=== PATIENT | female | born 1970 | race Caucasian/White ===

== ENCOUNTER 2024-09-28 01:57 | Emergency (ER) | payer MEDICAID ==
[~2024-09-28] VITALS: Ht 162.6 cm; Wt 95.0 kg
[2024-09-28 02:13] VITALS: O2SAT 96
[2024-09-28] MEDS: ACETAMINOPHEN 325MG TABLET PO ONE (03:15)
[2024-09-28] MEDS ORDERED: BENZ100C86 MT (04:31)
[2024-09-28] MEDS ORDERED: DOXY100C5 MT (04:31)
[2024-09-28 04:40] VITALS: BP 112/52; PULSE 96; RESP 18; TEMP 37.4; O2SAT 97
== END 2024-09-28 04:53 | disposition home or self-care (01) ==
LOC: ER 02:17
DX: J06.9 Acute upper respiratory infection, unspecified (principal); E11.9 Type 2 diabetes mellitus without complications
CPT/HCPCS: 71045; 99283

== ENCOUNTER 2024-11-09 11:18 | Inpatient (IN) | payer MEDICAID, OTHER ==
[~2024-11-09] VITALS: Ht 162.6 cm; Wt 64.9 kg
[~2024-11-09 11:18] MED LIST: AMOX1TAB16 PO; APIX5TAB; ATOR10TA69; AZIT250T12 PO; BENZ100C86 MT; ENAL-79; GABA-1180; TRAZ-251
[2024-11-09 12:51] LABS: BASOPHILS % 0.6 % (0.0-2.0); DIFFERENTIAL COMMENT 0; EOSINOPHILS % 0.2 % (0.0-5.0); HEMATOCRIT. 30.1 % (36.0-48.0); HEMOGLOBIN. 9.8 g/dL (12.0-16.0); LYMPHOCYTES % 11.5 % (20.0-50.0); MEAN CORPUSCULAR HGB CONC 32.7 g/dL (31.0-37.0); MEAN CORPUSCULAR VOLUME 79.6 fL (81.0-99.0); MEAN PLATELET VOLUME 7.3 fl (7.4-10.4); MONOCYTES % 7.2 % (2.0-8.0); NEUTROPHILS % 80.5 % (40.0-76.0); PLATELET 204 x1000/uL (130-400); RED BLOOD CELL COUNT 3.78 mill/uL (4.2-5.4); RED CELL DISTRIBUTION WIDTH 16.9 % (11.6-14.6); WHITE BLOOD COUNT 7.9 x1000/uL (4.5-11.0)
[2024-11-09 12:57] LABS: CHLORIDE 104 mEq/L (98-107); POTASSIUM 4.1 mEq/L (3.5-5.1); SODIUM 139 mEq/L (136-145)
[2024-11-09 12:58] LABS: CALCIUM 7.5 mg/dL (8.7-10.4); CARBON DIOXIDE 31 mEq/L (21-32)
[2024-11-09 13:03] LABS: CREATININE 0.7 mg/dL (0.6-1.0); GLUCOSE 135 mg/dL (70-105); UREA NITROGEN BLOOD 11 mg/dL (9-23)
[2024-11-09 13:05] LABS: TROPONIN I HIGH SENSITIVITY 9 ng/L (3.0-34)
[2024-11-09] MEDS: PIPERACILLIN/TAZO 3.375G/50ML 50 ML IV ONE (13:45)
[2024-11-09] MEDS: SODIUM CHLORIDE 0.9% (SEPSIS BOLUS) IV ONE (13:45)
[2024-11-09] MEDS: ONDANSETRON HCL 4MG/2ML INJ IV STA (13:45)
[2024-11-09] MEDS: VANCOMYCIN 1G PREMIX 200 ML IV ONE (14:05)
[2024-11-09 15:27] LABS: TROPONIN I HIGH SENSITIVITY 8 ng/L (3.0-34)
[2024-11-09 18:08] LABS: INFLUENZA TYPE A Presumptive Negative (Pres. Neg.)
[2024-11-09 18:09] LABS: INFLUENZA TYPE B Presumptive Negative (Pres. Neg.); RESPIRATORY SYNCYTIAL VIRUS Not Detected (Not Detectd)
[2024-11-09] MEDS: ACETAMINOPHEN 650MG/20.3ML UDC PO PRN (18:22)
[2024-11-09 20:00] VITALS: BP 119/63; PULSE 83; RESP 19; TEMP 36.4; O2SAT 96
[2024-11-09] MEDS: ATORVASTATIN CALCIUM 10MG TABLET PO SCH (21:00)
[2024-11-09] MEDS: TRAZODONE HCL 50MG TABLET PO SCH (21:00)
[2024-11-09] MEDS: GABAPENTIN 300MG CAPSULE PO SCH (21:00)
[2024-11-09 22:20] VITALS: BP 105/54; PULSE 84; RESP 18; TEMP 38.8
[2024-11-10] VITALS (7 sets, daily range): BP systolic 98–132; BP diastolic 48–74; PULSE 64–88; RESP 16–19; TEMP 36.2–36.6; O2SAT 96–98
[2024-11-10] MEDS: PIPERACILLIN/TAZO 3.375G/50ML 50 ML IV SCH (02:19)
[2024-11-10] MEDS: ACETAMINOPHEN 325MG TABLET PO PRN (05:36)
[2024-11-10] MEDS: AZITHROMYCIN 500MG/250ML 250 ML IV SCH (05:37)
[2024-11-10] MEDS ORDERED: DEXTROSE 50% WATER 50ML SYRINGE IV PRN (06:30)
[2024-11-10] MEDS: BLOOD SUGAR DIAGNOSTIC STRIP TEST SCH (07:20)
[2024-11-10] MEDS: INSULIN LISPRO 100 UNITS/ML SUBCUT SCH (07:50)
[2024-11-10] MEDS: APIXABAN 5 MG TABLET PO SCH (08:47)
[2024-11-10] MEDS: GUAIFENESIN-DM 200MG-20MG/10ML UDC PO PRN (16:48)
[2024-11-10] MEDS: POLYVINYL ALCOHOL OPHTH DROPS 15ML BOTHEYE SCH (18:23)
[2024-11-10] MEDS: TOBRAMYCIN/DEXAMETH 0.1/0.3% OPHTH SUSP 2.5ML BOTHEYE SCH (21:52)
[2024-11-10] MEDS: IPRATROPIUM/ALBUTEROL 0.5-3(2.5)MG/3ML NEB HHN PRN (22:42)
[2024-11-11] VITALS (7 sets, daily range): BP systolic 116–139; BP diastolic 63–83; PULSE 72–79; RESP 15–18; TEMP 36.2–37.1; O2SAT 95–99
[2024-11-11] MEDS: AZITHROMYCIN 500MG/250ML 250 ML IV SCH (06:19)
[2024-11-11 07:42] LABS: CALCIUM 7.6 mg/dL (8.7-10.4)
[2024-11-11 08:03] LABS: BASOPHILS % 0.3 % (0.0-2.0); EOSINOPHILS % 2.9 % (0.0-5.0); HEMATOCRIT. 25.4 % (36.0-48.0); HEMOGLOBIN. 8.3 g/dL (12.0-16.0); MEAN CORPUSCULAR HEMOGLOBIN 26.1 pg (28.0-32.0); MEAN CORPUSCULAR HGB CONC 32.6 g/dL (31.0-37.0); MEAN CORPUSCULAR VOLUME 80.1 fL (81.0-99.0); MONOCYTES % 6.6 % (2.0-8.0); NEUTROPHILS % 73.2 % (40.0-76.0); PLATELET 185 x1000/uL (130-400); RED BLOOD CELL COUNT 3.17 mill/uL (4.2-5.4); RED CELL DISTRIBUTION WIDTH 16.7 % (11.6-14.6); WHITE BLOOD COUNT 4.9 x1000/uL (4.5-11.0)
[2024-11-11 09:07] LABS: CREATININE 1.5 mg/dL (0.6-1.0)
[2024-11-11] MEDS: IPRATROPIUM/ALBUTEROL 0.5-3(2.5)MG/3ML NEB HHN PRN (21:06)
[2024-11-11] MEDS: SODIUM CHLORIDE 0.9% 1,000 ML IV SCH (23:59)
[2024-11-12] VITALS (7 sets, daily range): BP systolic 117–161; BP diastolic 67–79; PULSE 75–86; RESP 18; TEMP 36.2–36.6; O2SAT 96–98
[2024-11-12 08:05] LABS: BASOPHILS % 0.5 % (0.0-2.0); EOSINOPHILS % 2.8 % (0.0-5.0); HEMATOCRIT. 24.2 % (36.0-48.0); HEMOGLOBIN. 7.7 g/dL (12.0-16.0); LYMPHOCYTES % 21.6 % (20.0-50.0); MEAN CORPUSCULAR HEMOGLOBIN 25.8 pg (28.0-32.0); MEAN CORPUSCULAR HGB CONC 31.9 g/dL (31.0-37.0); MEAN CORPUSCULAR VOLUME 80.9 fL (81.0-99.0); MEAN PLATELET VOLUME 7.8 fl (7.4-10.4); MONOCYTES % 9.3 % (2.0-8.0); NEUTROPHILS % 65.8 % (40.0-76.0); PLATELET 205 x1000/uL (130-400); RED BLOOD CELL COUNT 2.99 mill/uL (4.2-5.4); RED CELL DISTRIBUTION WIDTH 16.5 % (11.6-14.6); WHITE BLOOD COUNT 4.4 x1000/uL (4.5-11.0)
[2024-11-12] MEDS: AZITHROMYCIN 500 MG TABLET PO SCH (08:55)
[2024-11-12 19:01] LABS: BG BASE EXCESS 1.8 mmol/L (-2.0-3.0); BG CARBOXYHEMOGLOBIN 0.2 % (0.5-1.5); BG DEOXYHEMOGLOBIN 4.8 % (0.0-5.0); BG FRACTION INSPIRED OXYGEN 21; BG METHEMOGLOBIN 0.3 % (0.5-1.5); BG OXYGEN SATURATION 95.2 % (94.0-98.0); BG OXYHEMOGLOBIN 94.7 % (94.0-98.0); BG PCO2 39.4 mmHg (32.0-45.0); BG PH 7.438 (7.350-7.450); BG PO2 72.1 mmHg (83.0-108.0); BG SAMPLE SITE LEFT BRACHIAL; BG TOTAL HEMOGLOBIN 11.3 g/dL (12.0-16.0); BG VENT MODE ROOM AIR
[2024-11-12] MEDS: METHYLPREDNISOLONE SOD SUCC 125MG/2ML (ACT-O-VIAL) IV SCH (23:13)
[2024-11-13] VITALS (8 sets, daily range): BP systolic 134–168; BP diastolic 59–89; PULSE 75–95; RESP 17–20; TEMP 36.3–36.8; O2SAT 95–98
[2024-11-13] MEDS: INSULIN LISPRO 100 UNITS/ML SUBCUT ONE (06:43)
[2024-11-13 07:12] LABS: POTASSIUM 4.8 mEq/L (3.5-5.1)
[2024-11-13 07:13] LABS: CALCIUM 8.1 mg/dL (8.7-10.4)
[2024-11-13 07:18] LABS: CREATININE 1.4 mg/dL (0.6-1.0)
[2024-11-13 07:24] LABS: BASOPHILS % 0.3 % (0.0-2.0); EOSINOPHILS % 0.1 % (0.0-5.0); HEMATOCRIT. 26.4 % (36.0-48.0); HEMOGLOBIN. 8.5 g/dL (12.0-16.0); LYMPHOCYTES % 8.8 % (20.0-50.0); MEAN CORPUSCULAR HEMOGLOBIN 26.2 pg (28.0-32.0); MEAN CORPUSCULAR HGB CONC 32.3 g/dL (31.0-37.0); MEAN PLATELET VOLUME 7.9 fl (7.4-10.4); MONOCYTES % 2.5 % (2.0-8.0); NEUTROPHILS % 88.3 % (40.0-76.0); PLATELET 211 x1000/uL (130-400); RED BLOOD CELL COUNT 3.26 mill/uL (4.2-5.4); RED CELL DISTRIBUTION WIDTH 16.2 % (11.6-14.6); WHITE BLOOD COUNT 3.9 x1000/uL (4.5-11.0)
[2024-11-13] MEDS: FAMOTIDINE 20MG/2ML VIAL IV SCH (09:02)
[2024-11-13] MEDS: INSULIN GLARGINE 100 UNITS/ML SUBCUT SCH (09:55)
[2024-11-13] MEDS: INSULIN LISPRO 100 UNITS/ML SUBCUT SCH (10:23)
[2024-11-13] MEDS ORDERED: LEVO750T68 MT (10:41)
[2024-11-13] MEDS ORDERED: P20 MT (10:41)
[2024-11-13] MEDS ORDERED: ALBU18HF2 IH (10:41)
[2024-11-13] MEDS: INSULIN LISPRO 100 UNITS/ML SUBCUT NR (13:34)
[2024-11-14] VITALS: BP 149/77; PULSE 71; RESP 19; TEMP 36.3; O2SAT 98
[2024-11-14 04:00] VITALS: BP 179/86; PULSE 81; RESP 20; TEMP 36.3; O2SAT 98
[2024-11-14] MEDS: CLONIDINE 0.2MG TABLET PO PRN (05:21)
[2024-11-14 08:00] VITALS: BP 154/80; PULSE 82; RESP 18; TEMP 36.4; O2SAT 98
[2024-11-14 15:02] VITALS: BP 128/76; PULSE 66; TEMP 97.6; O2SAT 98
== END 2024-11-14 15:55 | disposition home or self-care (01) | DRG 720 ==
LOC: ER 11:18 → 6WST 15:12
PROVIDERS: ADMIT Internal Medicine; ATTEND Internal Medicine
DX: A41.9 Sepsis, unspecified organism (principal); N17.0 Acute kidney failure with tubular necrosis; J18.9 Pneumonia, unspecified organism; J44.0 Chronic obstructive pulmonary disease with (acute) lower respiratory infection; E11.51 Type 2 diabetes mellitus with diabetic peripheral angiopathy without gangrene; D50.9 Iron deficiency anemia, unspecified; Z68.24 Body mass index [BMI] 24.0-24.9, adult; E66.9 Obesity, unspecified; F15.90 Other stimulant use, unspecified, uncomplicated; I10 Essential (primary) hypertension; Z86.718 Personal history of other venous thrombosis and embolism; F17.210 Nicotine dependence, cigarettes, uncomplicated; Z79.01 Long term (current) use of anticoagulants; Z20.822 Contact with and (suspected) exposure to COVID-19
CPT/HCPCS: 36415; 36600; 71045; 80048; 82375; 82805; 82962; 83036; 83605; 83880; 84145; 84484; 85025; 87420; 87426; 87804; 93005; 94070; 94640; 99291; J0456; J1815; J2405; J2543; J2919; J3370; J3490; J7030

== ENCOUNTER 2024-12-16 08:55 | Inpatient (IN) | payer MEDICAID ==
[~2024-12-16] VITALS: Ht 170.2 cm; Wt 83.5 kg
[~2024-12-16 08:55] MED LIST changes: +ALBU18HF2 IH; -AMOX1TAB16 PO; +LEVO750T68 MT; +P20 MT
[2024-12-16 09:29] LABS: BASOPHILS % 0.9 % (0.0-2.0); DIFFERENTIAL COMMENT 0; EOSINOPHILS % 0.9 % (0.0-5.0); HEMATOCRIT. 26.7 % (36.0-48.0); HEMOGLOBIN. 8.8 g/dL (12.0-16.0); LYMPHOCYTES % 16.2 % (20.0-50.0); MEAN CORPUSCULAR HEMOGLOBIN 25.9 pg (28.0-32.0); MEAN CORPUSCULAR HGB CONC 33.1 g/dL (31.0-37.0); MEAN CORPUSCULAR VOLUME 78.2 fL (81.0-99.0); MEAN PLATELET VOLUME 6.6 fl (7.4-10.4); MONOCYTES % 6.3 % (2.0-8.0); NEUTROPHILS % 75.7 % (40.0-76.0); PLATELET 131 x1000/uL (130-400); RED BLOOD CELL COUNT 3.41 mill/uL (4.2-5.4); RED CELL DISTRIBUTION WIDTH 17.5 % (11.6-14.6)
[2024-12-16 09:38] LABS: CHLORIDE 107 mEq/L (98-107); POTASSIUM 2.9 mEq/L (3.5-5.1); SODIUM 142 mEq/L (136-145)
[2024-12-16 09:39] LABS: CALCIUM 8.6 mg/dL (8.7-10.4); CARBON DIOXIDE 28 mEq/L (21-32)
[2024-12-16 09:44] LABS: CREATININE 0.8 mg/dL (0.6-1.0); GLUCOSE 138 mg/dL (70-105); UREA NITROGEN BLOOD 12 mg/dL (9-23)
[2024-12-16 09:45] LABS: TROPONIN I HIGH SENSITIVITY 16 ng/L (3.0-34)
[2024-12-16] MEDS ORDERED: ENALAPRIL 2.5MG/2ML VIAL 2ML IV ONE (11:00)
[2024-12-16] MEDS: FUROSEMIDE 40MG/4ML VIAL IVP ONE (11:48)
[2024-12-16] MEDS: ENALAPRIL 1.25MG/ML VIAL 1ML IV NR (11:49)
[2024-12-16 12:12] LABS: TROPONIN I HIGH SENSITIVITY 17 ng/L (3.0-34)
[2024-12-16] MEDS ORDERED: ACETAMINOPHEN 325MG TABLET PO PRN (13:00)
[2024-12-16] MEDS ORDERED: DEXTROSE 50% WATER 50ML SYRINGE IV PRN (13:00)
[2024-12-16] MEDS: BLOOD SUGAR DIAGNOSTIC STRIP TEST SCH (13:00)
[2024-12-16] MEDS ORDERED: ONDANSETRON HCL 4MG/2ML INJ IV PRN (13:00)
[2024-12-16] MEDS: INSULIN LISPRO 100 UNITS/ML SUBCUT SCH (13:19)
[2024-12-16 14:00] VITALS: BP 175/80; PULSE 74; RESP 18; TEMP 36.6
[2024-12-16] MEDS ORDERED: POTASSIUM CHLORIDE 20MEQ TABLET SR PO ONE (14:15)
[2024-12-16] MEDS: APIXABAN 5 MG TABLET PO SCH (15:53)
[2024-12-16] MEDS: GABAPENTIN 300MG CAPSULE PO SCH (15:53)
[2024-12-16] MEDS: FUROSEMIDE 40MG/4ML VIAL IVP SCH (15:53)
[2024-12-16] MEDS: ATORVASTATIN CALCIUM 10MG TABLET PO SCH (15:54)
[2024-12-16] MEDS: POTASSIUM CHLORIDE 20MEQ TABLET SR PO NR (15:54)
[2024-12-16] MEDS: HYDRALAZINE 20MG/ML VIAL IV PRN (15:55)
[2024-12-16] MEDS: TRAZODONE HCL 50MG TABLET PO SCH (15:55)
[2024-12-16] MEDS: PANTOPRAZOLE SODIUM 40 MG/VIAL IV SCH (16:10)
[2024-12-16 20:00] VITALS: BP 150/74; PULSE 72; RESP 20; TEMP 36.7; O2SAT 99
[2024-12-16 20:16] LABS: POTASSIUM 2.9 mEq/L (3.5-5.1)
[2024-12-17] VITALS: BP 139/67; PULSE 72; RESP 20; TEMP 36.9; O2SAT 100
[2024-12-17 04:00] VITALS: BP 151/78; PULSE 72; RESP 20; TEMP 36.8; O2SAT 100
[2024-12-17] MEDS: POTASSIUM CHLORIDE 20MEQ TABLET SR PO NR (06:12)
[2024-12-17 08:00] VITALS: BP 150/75; PULSE 79; RESP 16; TEMP 36.8; O2SAT 100
[2024-12-17 09:55] LABS: BASOPHILS % 0.8 % (0.0-2.0); DIFFERENTIAL COMMENT 0; EOSINOPHILS % 1.8 % (0.0-5.0); HEMATOCRIT. 27.5 % (36.0-48.0); HEMOGLOBIN. 9.1 g/dL (12.0-16.0); LYMPHOCYTES % 22.1 % (20.0-50.0); MEAN CORPUSCULAR HEMOGLOBIN 26.1 pg (28.0-32.0); MEAN CORPUSCULAR HGB CONC 32.9 g/dL (31.0-37.0); MEAN CORPUSCULAR VOLUME 79.4 fL (81.0-99.0); MEAN PLATELET VOLUME 7.1 fl (7.4-10.4); MONOCYTES % 6.7 % (2.0-8.0); NEUTROPHILS % 68.6 % (40.0-76.0); PLATELET 140 x1000/uL (130-400); RED BLOOD CELL COUNT 3.47 mill/uL (4.2-5.4); WHITE BLOOD COUNT 3.7 x1000/uL (4.5-11.0)
[2024-12-17 10:12] LABS: CALCIUM 8.1 mg/dL (8.7-10.4); CARBON DIOXIDE 30 mEq/L (21-32); CHLORIDE 105 mEq/L (98-107); POTASSIUM 3.4 mEq/L (3.5-5.1); SODIUM 140 mEq/L (136-145)
[2024-12-17 10:17] LABS: CREATININE 0.9 mg/dL (0.6-1.0); GLUCOSE 118 mg/dL (70-105)
[2024-12-17 10:18] LABS: UREA NITROGEN BLOOD 16 mg/dL (9-23)
[2024-12-17] MEDS: LISINOPRIL 40MG TABLET PO SCH (10:22)
[2024-12-17] MEDS: KCL 20MEQ/100ML PREMIX 100 ML IV SCH (10:25)
[2024-12-17 12:00] VITALS: BP 136/61; PULSE 74; RESP 16; TEMP 36.6; O2SAT 97
[2024-12-17 16:00] VITALS: BP 165/80; PULSE 79; RESP 16; TEMP 36.3; O2SAT 100
[2024-12-17] MEDS: MAGNESIUM 1 G PREMIX 100 ML IV NR (17:58)
[2024-12-17 20:00] VITALS: BP 159/78; PULSE 80; RESP 20; TEMP 36.2; O2SAT 96
[2024-12-18] VITALS: BP 132/61; PULSE 76; RESP 20; TEMP 36.3; O2SAT 95
[2024-12-18 04:00] VITALS: BP 141/64; PULSE 80; RESP 20; TEMP 36.6; O2SAT 96
[2024-12-18 07:43] VITALS: BP 148/78; PULSE 81; RESP 18; TEMP 36.7; O2SAT 98
[2024-12-18 07:46] LABS: BASOPHILS % 0.6 % (0.0-2.0); DIFFERENTIAL COMMENT 0; EOSINOPHILS % 1.9 % (0.0-5.0); HEMATOCRIT. 23.9 % (36.0-48.0); HEMOGLOBIN. 7.9 g/dL (12.0-16.0); LYMPHOCYTES % 28.9 % (20.0-50.0); MEAN CORPUSCULAR HEMOGLOBIN 25.9 pg (28.0-32.0); MEAN CORPUSCULAR HGB CONC 33.2 g/dL (31.0-37.0); MEAN CORPUSCULAR VOLUME 78.1 fL (81.0-99.0); MEAN PLATELET VOLUME 7.1 fl (7.4-10.4); MONOCYTES % 8.1 % (2.0-8.0); NEUTROPHILS % 60.5 % (40.0-76.0); PLATELET 149 x1000/uL (130-400); POTASSIUM 3.6 mEq/L (3.5-5.1); RED BLOOD CELL COUNT 3.06 mill/uL (4.2-5.4); RED CELL DISTRIBUTION WIDTH 17.3 % (11.6-14.6); WHITE BLOOD COUNT 3.5 x1000/uL (4.5-11.0)
[2024-12-18 07:48] LABS: CALCIUM 8.2 mg/dL (8.7-10.4)
[2024-12-18 08:23] LABS: CLARITY URINE CLEAR (CLEAR); COLOR URINE YELLOW (YELLOW); GLUCOSE URINE NEGATIVE (NEGATIVE); KETONES URINE NEGATIVE (NEGATIVE); LEUKOCYTE ESTERASE URINE NEGATIVE (NEGATIVE); NITRITE URINE NEGATIVE (NEGATIVE); OCCULT BLOOD URINE NEGATIVE (NEGATIVE); PH URINE 6.5 (4.5-8.0); PROTEIN URINE 3+ (NEGATIVE); SPECIFIC GRAVITY URINE 1.011 (1.005-1.030); UROBILINOGEN URINE 0.2 E.U./dL (0.2-1.0)
[2024-12-18 08:43] LABS: RBC URINE NONE SEEN /hpf (0-2); SQUAMOUS EPITHELIAL CELL URINE 1+ /lpf (RARE/1+); WBC URINE 0-2 /hpf (0-2)
[2024-12-18 08:44] LABS: FINE GRANULAR CASTS URINE 0-5 /lpf; HYALINE CASTS URINE 0-5 /lpf
[2024-12-18 08:45] LABS: BACTERIA URINE TRACE
[2024-12-18 11:13] VITALS: BP 162/69; PULSE 82; RESP 20; TEMP 37.1; O2SAT 95
[2024-12-18] MEDS: POTASSIUM CHLORIDE 20MEQ/PACKET PO NR (12:50)
[2024-12-18 15:55] VITALS: BP 162/78; PULSE 79; RESP 19; TEMP 36.8; O2SAT 96
[2024-12-18 20:00] VITALS: BP 132/78; PULSE 95; RESP 18; TEMP 36.7; O2SAT 94
[2024-12-19] VITALS: BP 129/50; PULSE 78; RESP 18; TEMP 36.3; O2SAT 96
[2024-12-19 04:00] VITALS: BP 149/73; PULSE 78; RESP 20; TEMP 36.2; O2SAT 98
[2024-12-19 08:00] VITALS: BP 162/74; PULSE 77; RESP 20; TEMP 37.3; O2SAT 97
[2024-12-19] MEDS ORDERED: AMLO10TA80 MT (11:53)
[2024-12-19] MEDS ORDERED: FURO-151 MT (11:53)
[2024-12-19] MEDS ORDERED: LOSA100T33 MT (11:53)
[2024-12-19 12:00] VITALS: BP 147/67; PULSE 74; RESP 18; TEMP 36.7; O2SAT 96
[2024-12-19 13:28] VITALS: BP 147/71; PULSE 75; TEMP 97.6; O2SAT 98
== END 2024-12-19 16:00 | disposition home or self-care (01) | DRG 194 ==
LOC: ER 08:55 → EDBEDREQTM 11:14 → EDBEDREQ 11:14 → 7WST 13:18
PROVIDERS: ADMIT Internal Medicine; ATTEND Internal Medicine
DX: I11.0 Hypertensive heart disease with heart failure (principal); Z79.01 Long term (current) use of anticoagulants; D64.9 Anemia, unspecified; E11.9 Type 2 diabetes mellitus without complications; E87.6 Hypokalemia; F15.90 Other stimulant use, unspecified, uncomplicated; F17.210 Nicotine dependence, cigarettes, uncomplicated; I50.33 Acute on chronic diastolic (congestive) heart failure; I25.10 Atherosclerotic heart disease of native coronary artery without angina pectoris; Z86.718 Personal history of other venous thrombosis and embolism; Z87.01 Personal history of pneumonia (recurrent); Z88.2 Allergy status to sulfonamides; Z88.3 Allergy status to other anti-infective agents; Z98.61 Coronary angioplasty status; I25.2 Old myocardial infarction; Z79.899 Other long term (current) drug therapy
CPT/HCPCS: 36415; 71045; 80048; 81003; 82962; 83036; 83735; 83880; 84132; 84484; 85025; 86850; 86900; 93005; 93306; 93970; 96374; 96375; 99285; A4606; J0360; J1815; J1940; J2470; J3475; J3480; J3490